=== PATIENT | male | born 1985 | race Caucasian/White ===

== ENCOUNTER 2016-09-11 20:59 | Emergency (ER) | payer SELFPAY ==
[2016-09-11 21:01] VITALS: BMI 31.3
[2016-09-11 22:53] LABS: BASOPHIL 1.1 % (0-2.0); MCH 25.4 pg (25.7-33.7); MCHC 32.8 g/dl (32.0-35.9); MEAN CELL VOLUME 77.3 fl (80-96); MEAN PLT VOLUME 8.1 fl (7.5-11.1); NEUTROPHILS 77.2 % (42.8-82.8); PLATELET COUNT 279 K/MM3 (134-434); RDW 14.1 % (11.9-15.9); WHITE BLOOD COUNT 8.5 K/mm3 (4.0-10.0)
--- NOTE | 2016-09-11 23:19 | PDOC ---
*Physical Exam - Vital Signs Last Vital Signs Temp Pulse Resp BP Pulse Ox 102 H 20 106/61 98 09/11/16 21:00 09/11/16 21:00 09/11/16 21:00 09/11/16 21:00 ED Treatment Course - LABORATORY CBC & Chemistry Diagram: 09/11/16 22:44 09/11/16 22:44 - ADDITIONAL ORDERS Additional order review: 09/11/16 22:44 RBC 5.43 MCV 77.3 L MCHC 32.8 RDW 14.1 MPV 8.1 Neutrophils % 77.2 Lymphocytes % 15.1 Monocytes % 4.6 Eosinophils % 2.0 Basophils % 1.1 Medical Decision Making - Medical Decision Making 09/11/16 23:18 Pt seen by the Advanced Practice Provider under my direct supervision Ancillary studies reviewed I agree with plan as outlined by the Advanced Practice Provider AUNDREA George *DC/Admit/Observation/Transfer Diagnosis at time of Disposition: Shortness of breath - Discharge Dispostion Disposition: HOME Condition at time of disposition: Stable - Referrals Referrals: Ismael Cohen MD [Staff Physician] - Papa Walter MD [Staff Physician] - - Patient Instructions Printed Discharge Instructions: DI for Atypical Chest Pain Additional Instructions: Please establish care with a primary care doctor and guest services attendant as discussed. If you experience any increased shortness of breath, chest pain, palpitations , lightheadedness, fever, chills, vomiting, diarrhea, or any new or worsening symptoms, please return to the ER.
[2016-09-11 23:24] LABS: ALBUMIN 3.6 g/dl (3.4-5.0); ALK PHOS 63 U/L (45-117); ANION GAP 6 (8-16); BILIRUBIN,TOTAL 0.4 mg/dL (0.2-1.0); CALCIUM 8.7 mg/dL (8.5-10.1); CO2 29 mmol/L (21-32); CREATININE 0.9 mg/dL (0.7-1.3); GLUCOSE,RANDOM 108 mg/dL (74-106); SGOT/AST 16 U/L (15-37); SGPT/ALT 25 U/L (12-78); TOT PROT 7.3 g/dl (6.4-8.2)
--- NOTE | 2016-09-11 23:24 | PDOC ---
History of Present Illness - General Chief Complaint: Shortness of Breath Stated Complaint: DIFFICULTY BREATHING Time Seen by Provider: 09/11/16 21:01 - History of Present Illness Initial Comments: 09/11/16 23:18 CHIEF COMPLAINT: SOB HISTORY OF PRESENT ILLNESS: 30 yo M with no PMH presents to ED with shortness of breath since this afternoon. Patient reports that he "was working on some stuff at home, got tired and took a nap, and when I woke up I felt weird, like it was hard to breathe and I was sweating abnormally. My legs felt abnormally light or something." He denies any chest pain. No recent travel or sick contacts. PAST MEDICAL HISTORY: Denies past medical history FAMILY HISTORY: "My dad had heart problems, not really sure what but I think he might have had a heart attack." SOCIAL HISTORY: Former smoker, quit in 2000. Denies alcohol, illicit drug use. SURGICAL HISTORY: Denies ALLERGIES: No known drug allergies REVIEW OF SYSTEMS General/Constitutional: Denies fever or chills. Denies weakness, weight change. HEENT: Denies change in vision. Denies ear pain or discharge. Denies sore throat. Cardiovascular: SOB this afternoon, now resolved. Denies chest pain. Respiratory: Denies cough, wheezing, or hemoptysis. Gastrointestinal: Denies nausea, vomiting, diarrhea or constipation. Denies rectal bleeding. Genitourinary: Denies dysuria, frequency, or change in urination. Musculoskeletal: Denies joint or muscle swelling or pain. Denies neck or back pain. Skin and breasts: Denies rash or easy bruising. Neurologic: Denies headache, vertigo, loss of consciousness, or loss of sensation. PHYSICAL EXAM General Appearance: Well-appearing, appropriately dressed. HEENT: EOMI, PERRLA. Neck: Supple. Trachea midline. No tenderness, rigidity, carotid bruit, stridor , lymphadenopathy, or thyromegaly. Respiratory/Chest: Lungs CTAB. Cardiovascular: RRR. S1, S2. Vascular Pulses: Dorsalis-Pedis (R): 2+, Dorsalis-Pedis (L): 2+ Gastrointestinal/Abdominal: Normal bowel sounds. Abdomen soft, non-distended. No tenderness or rebound tenderness. No organomegaly, pulsatile mass, guarding , hernia, hepatomegaly, splenomegaly. Musculoskeletal/Extremities: Normal inspection. FROM of all extremities, normal capillary refill. Pelvis Stable. No CVA tenderness. No tenderness to extremities, pedal edema, swelling, erythema or deformity. Integumentary: Appropriate color, dry, warm. No cyanosis, erythema, jaundice or rash Neurologic: loan servicing officer II-XII intact. Fully oriented, alert. Appropriate mood/affect. Motor strength 5/5. No appreciable EOM palsy, facial droop or sensory deficit. Past History - Past Medical History Home Medications: Ambulatory Orders NK [No Known Home Medication] 09/11/16 - Psycho/Social/Smoking Cessation Hx Suicidal Ideation: No Smoking History: Never smoked Have you smoked in the past 12 months: No Information on smoking cessation initiated: No Hx Alcohol Use: No Drug/Substance Use Hx: No *Physical Exam - Vital Signs Last Vital Signs Temp Pulse Resp BP Pulse Ox 102 H 20 106/61 98 09/11/16 21:00 09/11/16 21:00 09/11/16 21:00 09/11/16 21:00 ED Treatment Course - LABORATORY CBC & Chemistry Diagram: 09/11/16 22:44 09/11/16 22:44 - ADDITIONAL ORDERS Additional order review: 09/11/16 22:44 RBC 5.43 MCV 77.3 L MCHC 32.8 RDW 14.1 MPV 8.1 Neutrophils % 77.2 Lymphocytes % 15.1 Monocytes % 4.6 Eosinophils % 2.0 Basophils % 1.1 - RADIOLOGY Radiology Studies Ordered: Category Date Time Status CHEST PA & LAT [RAD] Stat Radiology 09/11/16 22:07 Ordered Medical Decision Making - Medical Decision Making 09/11/16 23:23 30 yo M with no PMH presents to ED with shortness of breath since this afternoon. -CBC, CMP, card profile, D-dimer -EKG, CXR Labs unremarkable. CXR negative Advised patient to follow up with PCP and cards within the next week. Advised patient of signs and symptoms for return to ED. Patient verbalized understanding and agrees to plan. *DC/Admit/Observation/Transfer Diagnosis at time of Disposition: Shortness of breath - Discharge Dispostion Disposition: HOME Condition at time of disposition: Stable Admit: No - Referrals Referrals: Ismael Cohen MD [Staff Physician] - Papa Walter MD [Staff Physician] - - Patient Instructions Printed Discharge Instructions: DI for Atypical Chest Pain Additional Instructions: Please establish care with a primary care doctor and college basketball coach as discussed. If you experience any increased shortness of breath, chest pain, palpitations , lightheadedness, fever, chills, vomiting, diarrhea, or any new or worsening symptoms, please return to the ER.
[2016-09-12 00:04] LABS: TROPONIN I 0.03 ng/ml (0.00-0.05)
[2016-09-12 01:06] VITALS: BP 110/68; PULSE 96
--- NOTE | 2016-09-12 12:25 | EKG ---
Test Reason : Blood Pressure : / mmHG Vent. Rate : 086 BPM Atrial Rate : 086 BPM P-R Int : 142 ms QRS Dur : 094 ms QT Int : 350 ms P-R-T Axes : 019 -24 -01 degrees QTc Int : 418 ms NORMAL SINUS RHYTHM MINIMAL VOLTAGE CRITERIA FOR LVH, MAY BE NORMAL VARIANT BORDERLINE ECG NO PREVIOUS ECGS AVAILABLE Confirmed by FREDIS RAMOS MD ([id number]) on 09/12/2016 12:25:02 PM Referred By: Confirmed By:FREDIS RAMOS MD
== END 2016-09-12 01:06 | disposition home or self-care (01) ==
LOC: JER 20:59
DX: R06.02 Shortness of breath (principal)
CPT/HCPCS: 36415; 71020-TC; 80053; 82550; 84484; 85025; 85379; 93005; 93010; 99282-25

== ENCOUNTER 2019-03-18 20:52 | Emergency (ER) | payer OTHER ==
[2019-03-18 21:11] VITALS: TEMP 97.9; BMI 44.1
--- NOTE | 2019-03-18 21:11 | PDOC ---
History of Present Illness - General Chief Complaint: Chest Pain Stated Complaint: CHEST PAIN Time Seen by Provider: 03/18/19 21:10 Past History - Past Medical History Allergies/Adverse Reactions: Allergies Allergy/AdvReac Type Severity Reaction Status Date / Time No Known Allergies Allergy Verified 03/18/19 21:09 Home Medications: Ambulatory Orders NK [No Known Home Medication] 09/11/16 COPD: No - Psycho Social/Smoking Cessation Hx Smoking History: Never smoked Have you smoked in the past 12 months: No Information on smoking cessation initiated: No Hx Alcohol Use: No Drug/Substance Use Hx: No *Physical Exam - Vital Signs Last Vital Signs Temp Pulse Resp BP Pulse Ox 97.9 F 160 H 18 147/96 100 03/18/19 21:07 03/18/19 21:07 03/18/19 21:07 03/18/19 21:07 03/18/19 21:07 ED Treatment Course - LABORATORY CBC & Chemistry Diagram: 03/18/19 21:45 03/18/19 21:45 Medical Decision Making - Medical Decision Making 03/18/19 21:52 HPI: 33yo M hx obesity presents from home with constant chest discomfort and mild palpitations since 0930 this AM, with similar sx approx 1x/mo xfew years, but usually resolve on own or with BMs within a few minutes. Discomfort worst at onset when woke up at 0930 this AM then quickly petered off but then remained constant as a "warmth"/discomfort similar to gas, L-sided, nonradiating, constant, 3/10, with associated slight feeling of palpitations. Hx similar sx approx 1x/4mo for past few years, but usually resolves in 1-few minutes on own or when goes to bathroom, never lasted this long before. Last time it happened he came here and it was worse with associated SOB and syncope and he was told it was dehydration. Hx smoking cigarettes <1 pack-year, quit 15 years ago. Denies webbing inspector, hx arrhythmia, echo, stress test. Father with CO and pacemaker at unknown age; mother with unknown abnormal rhythm. Denies LEMOS, orthopnea, syncope, trauma, recent illness, sick contacts, recent travel, hx CAD , FHx CAD or arrhythmia or SCD, leg swelling, calf tenderness, testosterone or hormone use, hx DVT or PE, hemoptysis, fever, chills, fatigue, headache, dizziness, numbness/tingling, weakness, vision changes, shortness of breath, cough, leg swelling, abdominal pain, blood in stool, diarrhea, constipation, nausea, vomiting, dysuria, hematuria, confusion. PCP - recent change from [facility] ([facility]), unknown name of doctor ROS: Constitutional: Negative for chills, fever, fatigue, diaphoresis. HENT: Negative for sore throat, rhinorrhea, congestion. Eyes: Negative for visual disturbance. Respiratory: Negative for shortness of breath, cough, and wheezing. Cardiovascular: Positive for chest pain and palpitations. Negative for leg swelling. Gastrointestinal: Negative for abdominal pain, blood in stool, constipation, diarrhea, nausea, and vomiting. Genitourinary: Negative for dysuria, flank pain, and hematuria. Musculoskeletal: Negative for myalgias, back pain, and neck pain. Skin: Negative for rash. Neurological: Negative for light-headedness, dizziness, vertigo, syncope, weakness, numbness and headaches. Psychiatric/Behavioral: Negative for behavioral problems and confusion. PE: Gen: Alert, NAD, comfortable-appearing, obese HEENT: PERRL, EOMI, MMM, NCAT. No conjunctival pallor. Sclera are non-icteric. CV: Tachycardic rate and regular rhythm. No murmurs, rubs, or gallops. PULM: No resp distress. CTAB, no wheezes, rales, or rhonchi. ABD: protuberant, soft, NT/ND, no rebound tenderness or guarding, no CVA tenderness. BACK: No TTP of c/t/l-spine. No step-offs or deformities. MSK: No bony deformities. 2+ pulses in all extremities. NEURO: AAOx3. PERRL. CN 2-12 intact. 5/5 strength in all extremities. Sensation to light touch intact in all extremities EXTREMITIES: No cyanosis. No clubbing. No edema. No calf tenderness. PSYCH: Normal mood and thought pattern. SKIN: Warm and dry. Normal capillary refill. No rashes. No jaundice. MDM: 33yo M hx obesity presents from home with constant chest discomfort and mild palpitations since 0930 this AM, with similar sx approx 1x/mo xfew years, but usually resolve on own or with BMs within a few minutes. Tachycardic to 160, other VSS, afebrile, tachycardic but otherwise benign physical exam. EKG reviewed: SVT, 153bpm, QTc 488ms, QRS duration 92ms, normal axis, nonspecific ST abnormality, no ST elevation or depression, no e/o acute ischemia CP and palpitations most likely due to SVT. Resolve SVT and reassess. Ddx: arrhythmia, ACS/CO, metabolic derangement, anemia. Low concern for pulmonary pathology (PNA, COPD exacerbation, PTX) due to lack of SOB, cough, or wheezing - no further testing indicated at this time; consider CXR if pain persists with resolution of SVT. Low concern for PE due to lack of SOB, s/s of DVT, or RFs/inciting events other than obesity - no further testing at this time ; consider further testing if pain persists with resolution of SVT. -Vagal maneuvers -If vagal maneuvers don't resolve SVT, adenosine -CBC,CMP,Cardiac profile,Mg,Phos,Coags -Dispo: pending w/u and SVT resolution Vagal maneuvers done. Pt placed in semirecumbent position and exhaled forcefully through large syringe. Multiple attempts without change. One attempt of modified Valsalva with standard strain followed by supine repositioning and 15 seconds of passive leg raise successful - SVT resolved, NSR in 80s-90s, pt's CP resolved. Pt feels much better. Education provided written (from [employer]) and verbally on SVT and Vagal maneuvers. Observe to make sure pt remains in normal rhythm. Pending labs and observation, likely d/c home 03/19/19 22:48 2nd EKG reviewed: NSR, 90bpm, QRS duration 106ms, QTc 433ms, normal axis, TWIs in III, no ST elevations or depressions Labs reviewed. Of note, trop @2145 0.06. Trend 3hr trop @0045 - if negative, d/ c home with cardio f/u. 03/19/19 00:08 Pt still comfortable, normal rhythm on monitor. Signed out to Dr Addie Chandler, pending trop, likely d/c home. Discharge - Discharge Information Problems reviewed: Yes Clinical Impression/Diagnosis: SVT (supraventricular tachycardia) Condition: Improved Disposition: HOME - Admission No - Follow up/Referral Referrals: Andrea Long MD [Staff Physician] - - Patient Discharge Instructions Patient Printed Discharge Instructions: Paroxysmal Supraventricular Tachycardia Additional Instructions: You have been seen in the Emergency Department for your chest pain. Your EKG showed your heart beating in an abnormally fast rhythm known as SVT ( Supraventricular Tachycardia). The SVT resolved with Vagal maneuvers and your chest pain improved. You need further evaluation and monitoring of your condition by a [facility]. We have given you a referral to [facility] Dr. Long - call his office (or the office of a webbing inspector you or your insurance prefers) in the morning to set up a follow-up appointment for within 1 week. If you experience these symptoms again, you can try the vagal maneuvers at home. If your symptoms don't improve with these maneuvers, you may need medication. Return to the Emergency Department immediately if you experience the same symptoms that don't resolve with vagal maneuvers, chest pain, difficulty breathing, dizziness or passing out, or any new or worsening symptoms. - Post Discharge Activity
[2019-03-18] MEDS ORDERED: SODIUM CHLORIDE 1,000 ML IV STA (21:44)
[2019-03-18] MEDS ORDERED: ADENOSINE 6 MG/2 ML VIAL IVPUSH ONE ×2 (21:44→21:45)
--- NOTE | 2019-03-18 22:00 | PDOC ---
Attending Attestation - Resident Resident Name: OrlandotonyaMarcie - ED Attending Attestation I have performed the following: I have examined & evaluated the patient, The case was reviewed & discussed with the resident, I agree w/resident's findings & plan, Exceptions are as noted - HPI HPI: 03/18/19 22:01 See resident HPI - Physicial Exam PE: 03/18/19 22:01 Agree with exam as documented by resident - Medical Decision Making 03/18/19 22:02 33M no pmh with cp, palpitations, says he has been evaluated by OSH for same. Symptoms have occurred before and usually resolve spontaneously EKG with SVT F/u labs Vagal maneuver re-eval Vagal maneuver broke arrythmia Repeat EKG, NSR Initial trop 0.06, will repeat Trop stable, dc with PCP and cardiology f/u
[2019-03-18 22:06] LABS: BASO % 0.9 % (0-2.0); EOS % 4.6 % (0-4.5); HEMATOCRIT 41.3 % (35.4-49); HEMOGLOBIN 13.6 GM/dL (11.7-16.9); LYMPH % 30.3 % (8-40); MCH 25.6 pg (25.7-33.7); MEAN CELL VOLUME 77.5 fl (80-96); MEAN PLT VOLUME 8.2 fl (7.5-11.1); NEUT % 57.2 % (42.8-82.8); PLATELET COUNT 299 K/MM3 (134-434); RBC 5.33 M/mm3 (4.00-5.60); RDW 14.7 % (11.9-15.9); WHITE BLOOD COUNT 9.4 K/mm3 (4.0-10.0)
[2019-03-18 22:27] LABS: INR 0.95 (0.83-1.09); PROTHROMBIN TIME (PATIENT) 11.2 SEC (9.7-13.0)
[2019-03-18 22:34] LABS: MAGNESIUM 2.2 mg/dL (1.8-2.4); PHOSPHOROUS 4.6 mg/dL (2.5-4.9)
[2019-03-18 22:40] LABS: ALBUMIN 3.4 g/dl (3.4-5.0); BILIRUBIN,TOTAL 0.2 mg/dL (0.2-1); BLOOD UREA NITROGEN 11.8 mg/dL (7-18); CALCIUM 9.4 mg/dL (8.5-10.1); CREATININE 0.8 mg/dL (0.55-1.3); TOT PROT 7.3 g/dl (6.4-8.2)
[2019-03-19 02:47] VITALS: BP 141/86; PULSE 95
--- NOTE | 2019-03-19 14:00 | EKG ---
Test Reason : Blood Pressure : / mmHG Vent. Rate : 090 BPM Atrial Rate : 090 BPM P-R Int : 154 ms QRS Dur : 106 ms QT Int : 354 ms P-R-T Axes : 032 -19 014 degrees QTc Int : 433 ms NORMAL SINUS RHYTHM NORMAL ECG WHEN COMPARED WITH ECG OF 11-SEP-2016 22:39, NONSPECIFIC T WAVE ABNORMALITY HAS REPLACED INVERTED T WAVES IN INFERIOR LEADS NONSPECIFIC T WAVE ABNORMALITY NOW EVIDENT IN LATERAL LEADS Confirmed by NIHARIKA ALEMAN MD ([id number]) on 03/19/2019 1:59:43 PM Referred By: Confirmed By:NIHARIKA ALEMAN MD
--- NOTE | 2019-03-19 14:03 | EKG ---
Test Reason : Blood Pressure : / mmHG Vent. Rate : 153 BPM Atrial Rate : 090 BPM P-R Int : 000 ms QRS Dur : 092 ms QT Int : 306 ms P-R-T Axes : 000 -28 004 degrees QTc Int : 488 ms SUPRAVENTRICULAR TACHYCARDIA NONSPECIFIC ST ABNORMALITY CANNOT RULE OUT INFERIOR INFARCT ABNORMAL ECG WHEN COMPARED WITH ECG OF 11-SEP-2016 22:39, VENT. RATE HAS INCREASED BY 67 BPM Confirmed by NIHARIKA ALEMAN MD ([id number]) on 03/19/2019 2:02:51 PM Referred By: Confirmed By:NIHARIKA ALEMAN MD
== END 2019-03-19 02:40 | disposition home or self-care (01) ==
LOC: JER 20:52
DX: I47.1 Supraventricular tachycardia (principal); E66.9 Obesity, unspecified; Z68.41 Body mass index [BMI] 40.0-44.9, adult
CPT/HCPCS: 36415; 80053; 82550; 83735; 84100; 84484; 85025; 85610; 93005; 93010; 99283-25

== ENCOUNTER 2020-08-23 12:38 | Emergency (ER) | payer OTHER ==
[2020-08-23 13:01] VITALS: TEMP 98.9; BMI 45.4
[2020-08-23] MEDS ORDERED: SODIUM CHLORIDE 0.9% 500 ML INFUS.BAG IV ONE ×2 (13:15→13:17)
[2020-08-23 13:56] LABS: BASO % 0.8 % (0-2.0); EOS % 2.6 % (0-4.5); HEMATOCRIT 40.6 % (35.4-49); HEMOGLOBIN 13.8 GM/dL (11.7-16.9); LYMPH % 25.3 % (8-40); MCH 25.6 pg (25.7-33.7); MCHC 33.9 g/dl (32.0-35.9); MEAN CELL VOLUME 75.6 fl (80-96); MEAN PLT VOLUME 8.2 fl (7.5-11.1); MONO % 8.6 % (3.8-10.2); NEUT % 62.7 % (42.8-82.8); PLATELET COUNT 252 K/MM3 (134-434); RBC 5.37 M/mm3 (4.00-5.60); RDW 15.6 % (11.9-15.9); WHITE BLOOD COUNT 5.8 K/mm3 (4.0-10.0)
[2020-08-23 14:02] LABS: INR 1.1 (0.83-1.09); PROTHROMBIN TIME (PATIENT) 13.3 SEC (9.7-13.0)
[2020-08-23 14:05] LABS: ACTIVATED PTT 33.7 SECONDS (25.2-36.5)
[2020-08-23 14:21] LABS: CHLORIDE 102 mmol/L (98-107); SODIUM 138 mmol/L (136-145)
[2020-08-23 14:23] LABS: ALBUMIN 3.6 g/dl (3.4-5.0); ANION GAP 9 MMOL/L (8-16); BLOOD UREA NITROGEN 12.5 mg/dL (7-18); CALCIUM 8.9 mg/dL (8.5-10.1); CO2 27 mmol/L (21-32); GLUCOSE,RANDOM 140 mg/dL (74-106)
[2020-08-23] MEDS ORDERED: ADENOSINE 6 MG/2 ML VIAL IVPUSH ONE ×4 (14:25→16:03)
[2020-08-23 14:26] LABS: SGOT/AST 31 U/L (15-37); SGPT/ALT 35 U/L (13-61)
[2020-08-23 14:27] LABS: CREATININE 0.8 mg/dL (0.55-1.3)
[2020-08-23 14:28] LABS: BILIRUBIN,TOTAL 0.5 mg/dL (0.2-1); TOT PROT 7.7 g/dl (6.4-8.2)
[2020-08-23 14:29] LABS: ALK PHOS 60 U/L (45-117)
[2020-08-23 16:05] VITALS: BP 132/69
[2020-08-25 08:52] VITALS: PULSE 95
== END 2020-08-23 16:17 | disposition home or self-care (01) ==
LOC: JER 12:38
PROC: 3E033GC Introduction of Other Therapeutic Substance into Peripheral Vein, Percutaneous Approach (ICD-10-PCS; principal; 2020-08-23)
DX: I47.1 Supraventricular tachycardia (principal); R00.2 Palpitations
CPT/HCPCS: 36415; 71045-TC-FY; 80053; 84443; 84484; 85025; 85610; 85730; 93005; 93010; 96374; 99285-25

== ENCOUNTER 2020-09-05 20:29 | Emergency (ER) | payer OTHER ==
[2020-09-05 20:48] VITALS: BMI 43.4
[2020-09-05] MEDS ORDERED: ADENOSINE 6 MG/2 ML VIAL IVPUSH ONE ×3 (21:05→21:58)
[2020-09-05 22:30] LABS: BASO % 0.7 % (0-2.0); HEMATOCRIT 42.1 % (35.4-49); LYMPH % 33.5 % (8-40); MCH 25.2 pg (25.7-33.7); MCHC 33.1 g/dl (32.0-35.9); MEAN CELL VOLUME 76.1 fl (80-96); MEAN PLT VOLUME 8.4 fl (7.5-11.1); NEUT % 52.8 % (42.8-82.8); PLATELET COUNT 276 10^3/uL (134-434); RBC 5.53 M/mm3 (4.00-5.60); RDW 15.5 % (11.9-15.9); WHITE BLOOD COUNT 8.1 K/mm3 (4.0-10.0)
[2020-09-05 22:38] LABS: INR 1.01 (0.83-1.09); PROTHROMBIN TIME (PATIENT) 12.4 SEC (9.7-13.0)
[2020-09-05 22:41] LABS: ACTIVATED PTT 34.8 SECONDS (25.2-36.5)
[2020-09-05 22:57] LABS: CHLORIDE 104 mmol/L (98-107); SODIUM 141 mmol/L (136-145)
[2020-09-05 22:59] LABS: CALCIUM 9.2 mg/dL (8.5-10.1)
[2020-09-05 23:00] LABS: ALBUMIN 3.7 g/dl (3.4-5.0); ANION GAP 8 MMOL/L (8-16); BLOOD UREA NITROGEN 11.1 mg/dL (7-18); CO2 29 mmol/L (21-32); GLUCOSE,RANDOM 109 mg/dL (74-106)
[2020-09-05 23:01] LABS: MAGNESIUM 2.1 mg/dL (1.8-2.4)
[2020-09-05 23:03] LABS: CREATININE 0.8 mg/dL (0.55-1.3); SGOT/AST 25 U/L (15-37); SGPT/ALT 45 U/L (13-61)
[2020-09-05 23:04] LABS: BILIRUBIN,TOTAL 0.3 mg/dL (0.2-1)
[2020-09-05 23:05] LABS: TOT PROT 7.8 g/dl (6.4-8.2)
[2020-09-05 23:06] LABS: ALK PHOS 62 U/L (45-117)
[2020-09-06 04:44] VITALS: BP 143/92; PULSE 98; TEMP 98.3
== END 2020-09-06 04:45 | disposition left against medical advice (07) ==
LOC: JER 20:29
PROC: 3E033GC Introduction of Other Therapeutic Substance into Peripheral Vein, Percutaneous Approach (ICD-10-PCS; principal; 2020-09-05)
PROC: 3E033GC Introduction of Other Therapeutic Substance into Peripheral Vein, Percutaneous Approach (ICD-10-PCS; 2020-09-05)
DX: I47.1 Supraventricular tachycardia (principal)
CPT/HCPCS: 36415; 71046-TC-FY; 80053; 82550; 83735; 84443; 84484; 85025; 85610; 85730; 93005; 93010; 99285-25

== ENCOUNTER 2020-09-16 15:22 | Emergency (ER) | payer OTHER ==
[2020-09-16 15:44] VITALS: BMI 43.4
[2020-09-16 16:14] LABS: BASO % 1.1 % (0-2.0); EOS % 5.7 % (0-4.5); HEMATOCRIT 38.3 % (35.4-49); HEMOGLOBIN 12.7 GM/dL (11.7-16.9); LYMPH % 25.6 % (8-40); MCH 25.3 pg (25.7-33.7); MCHC 33.2 g/dl (32.0-35.9); MEAN CELL VOLUME 76.1 fl (80-96); MEAN PLT VOLUME 7.7 fl (7.5-11.1); MONO % 6.7 % (3.8-10.2); NEUT % 60.9 % (42.8-82.8); PLATELET COUNT 248 10^3/uL (134-434); RBC 5.03 M/mm3 (4.00-5.60); RDW 15.1 % (11.9-15.9); WHITE BLOOD COUNT 5.7 K/mm3 (4.0-10.0)
[2020-09-16 16:32] LABS: CHLORIDE 106 mmol/L (98-107); SODIUM 139 mmol/L (136-145)
[2020-09-16 16:33] LABS: CALCIUM 8.3 mg/dL (8.5-10.1)
[2020-09-16 16:34] LABS: ANION GAP 8 MMOL/L (8-16); BLOOD UREA NITROGEN 11.8 mg/dL (7-18); CO2 24 mmol/L (21-32)
[2020-09-16 16:37] LABS: CREATININE 0.7 mg/dL (0.55-1.3)
[2020-09-16 16:44] LABS: GLUCOSE,RANDOM 97 mg/dL (74-106)
[2020-09-16 17:00] VITALS: TEMP 98.2
[2020-09-16 17:32] VITALS: BP 131/89; PULSE 81
== END 2020-09-16 17:33 | disposition home or self-care (01) ==
LOC: JER 15:22
DX: I47.1 Supraventricular tachycardia (principal)
CPT/HCPCS: 36415; 80048; 84484; 85025; 93005; 93010; 99284-25

== ENCOUNTER 2020-09-27 01:20 | Emergency (ER) | payer OTHER ==
[2020-09-27 01:29] VITALS: TEMP 98.4; BMI 43.4
[2020-09-27] MEDS ORDERED: ADENOSINE 6 MG/2 ML VIAL IVPUSH ONE ×2 (01:37→01:39)
[2020-09-27] MEDS ORDERED: SODIUM CHLORIDE 0.9% 500 ML INFUS.BAG IV ONE (01:38)
[2020-09-27 02:05] VITALS: BP 120/78; PULSE 86
[2020-09-27 02:21] LABS: BASO % 1.3 % (0-2.0); EOS % 6.1 % (0-4.5); HEMOGLOBIN 12.8 GM/dL (11.7-16.9); LYMPH % 30.4 % (8-40); MCH 25.1 pg (25.7-33.7); MCHC 32.8 g/dl (32.0-35.9); MEAN CELL VOLUME 76.3 fl (80-96); MEAN PLT VOLUME 7.8 fl (7.5-11.1); MONO % 5.9 % (3.8-10.2); NEUT % 56.3 % (42.8-82.8); PLATELET COUNT 257 10^3/uL (134-434); RBC 5.11 M/mm3 (4.00-5.60); WHITE BLOOD COUNT 5.8 K/mm3 (4.0-10.0)
[2020-09-27 02:30] LABS: INR 1.03 (0.83-1.09); PROTHROMBIN TIME (PATIENT) 12.5 SEC (9.7-13.0)
[2020-09-27 02:40] LABS: CHLORIDE 109 mmol/L (98-107); SODIUM 141 mmol/L (136-145)
[2020-09-27 02:42] LABS: ALBUMIN 3.2 g/dl (3.4-5.0); ANION GAP 7 MMOL/L (8-16); BLOOD UREA NITROGEN 11.3 mg/dL (7-18); CALCIUM 8.1 mg/dL (8.5-10.1); CO2 25 mmol/L (21-32); GLUCOSE,RANDOM 101 mg/dL (74-106)
[2020-09-27 02:45] LABS: CREATININE 0.6 mg/dL (0.55-1.3); SGOT/AST 17 U/L (15-37); SGPT/ALT 33 U/L (13-61)
[2020-09-27 02:47] LABS: BILIRUBIN,TOTAL 0.4 mg/dL (0.2-1); TOT PROT 6.7 g/dl (6.4-8.2)
[2020-09-27 02:48] LABS: ALK PHOS 54 U/L (45-117)
== END 2020-09-27 03:32 | disposition home or self-care (01) ==
LOC: JER 01:20
PROC: 3E033GC Introduction of Other Therapeutic Substance into Peripheral Vein, Percutaneous Approach (ICD-10-PCS; principal; 2020-09-27)
DX: I47.1 Supraventricular tachycardia (principal)
CPT/HCPCS: 36415; 80053; 82550; 84484; 85025; 85610; 93005; 93010; 96374; 99284-25

== ENCOUNTER 2020-12-10 19:07 | Emergency (ER) | payer OTHER ==
[2020-12-10 19:16] VITALS: TEMP 98.2; BMI 33.9
[2020-12-10 19:45] LABS: BASO % 1.1 % (0-2.0); HEMATOCRIT 37.8 % (35.4-49); HEMOGLOBIN 12.9 GM/dL (11.7-16.9); LYMPH % 23.6 % (8-40); MCH 25.8 pg (25.7-33.7); MCHC 34.1 g/dl (32.0-35.9); MEAN CELL VOLUME 75.8 fl (80-96); MEAN PLT VOLUME 7.6 fl (7.5-11.1); MONO % 4.7 % (3.8-10.2); NEUT % 65.6 % (42.8-82.8); PLATELET COUNT 257 10^3/uL (134-434); RBC 4.98 M/mm3 (4.00-5.60); RDW 14.8 % (11.9-15.9); WHITE BLOOD COUNT 6.5 K/mm3 (4.0-10.0)
[2020-12-10 20:08] LABS: CHLORIDE 106 mmol/L (98-107); SODIUM 140 mmol/L (136-145)
[2020-12-10 20:10] LABS: ALBUMIN 3.2 g/dl (3.4-5.0); ANION GAP 8 MMOL/L (8-16); BLOOD UREA NITROGEN 9.7 mg/dL (7-18); CALCIUM 8.2 mg/dL (8.5-10.1); CO2 26 mmol/L (21-32); GLUCOSE,RANDOM 122 mg/dL (74-106)
[2020-12-10 20:13] LABS: CREATININE 0.9 mg/dL (0.55-1.3); SGOT/AST 16 U/L (15-37); SGPT/ALT 23 U/L (13-61)
[2020-12-10 20:15] LABS: BILIRUBIN,TOTAL 0.3 mg/dL (0.2-1); TOT PROT 7.2 g/dl (6.4-8.2)
[2020-12-10 20:16] LABS: ALK PHOS 59 U/L (45-117)
[2020-12-10 20:34] VITALS: BP 140/84; PULSE 92
== END 2020-12-10 20:34 | disposition home or self-care (01) ==
LOC: JER 19:07
DX: I47.1 Supraventricular tachycardia (principal)
CPT/HCPCS: 36415; 71046-TC-FY; 80053; 82550; 84484; 85025; 93005; 93010; 99285-25

== ENCOUNTER 2021-10-22 14:05 | Emergency (ER) | payer OTHER ==
[2021-10-22] MEDS ORDERED: ONDANSETRON 4 MG/2 ML VIAL IVPUSH ONE (14:21)
[2021-10-22] MEDS ORDERED: FAMOTIDINE 20 MG/50 ML IVPB 20 MG/50 ML MG IVPB ONE ×2 (14:21→15:01)
[2021-10-22] MEDS ORDERED: SODIUM CHLORIDE 0.9% 500 ML INFUS.BAG IV ONE (14:21)
[2021-10-22 14:25] VITALS: RESP 20; TEMP 98.1; BMI 43.4
[2021-10-22] MEDS ORDERED: ONDANSETRON 4 MG/2 ML VIAL ONE (15:01)
[2021-10-22] MEDS ORDERED: MAG HYDROX/AL HYDROX/SIMETH 30 ML UNIT-DOSE CUP PO ONE (15:19)
[2021-10-22 15:22] LABS: BASO % 1.1 % (0-2.0); EOS % 6.2 % (0-4.5); HEMATOCRIT 40.5 % (35.4-49); HEMOGLOBIN 13.5 GM/dL (11.7-16.9); LYMPH % 29.6 % (8-40); MCH 24.6 pg (25.7-33.7); MCHC 33.4 g/dl (32.0-35.9); MEAN CELL VOLUME 73.6 fl (80-96); MEAN PLT VOLUME 8.4 fl (7.5-11.1); MONO % 5.9 % (3.8-10.2); NEUT % 57.2 % (42.8-82.8); PLATELET COUNT 284 10^3/uL (134-434); RDW 15.7 % (11.9-15.9); WHITE BLOOD COUNT 7.6 K/mm3 (4.0-10.0)
[2021-10-22] MEDS ORDERED: MAG HYDROX/AL HYDROX/SIMETH 30 ML UNIT-DOSE CUP ONE (15:37)
[2021-10-22 15:49] LABS: ALBUMIN 3.9 g/dl (3.4-5.0)
[2021-10-22 15:50] LABS: BLOOD UREA NITROGEN 15.4 mg/dL (7-18); MAGNESIUM 2.2 mg/dL (1.8-2.4)
[2021-10-22 15:53] LABS: CREATININE 0.9 mg/dL (0.55-1.3)
[2021-10-22 15:55] LABS: BILIRUBIN,TOTAL 0.4 mg/dL (0.2-1)
[2021-10-22 16:39] VITALS: BP 138/88; PULSE 77
== END 2021-10-22 16:43 | disposition home or self-care (01) ==
LOC: JER 14:05
PROC: 3E033GC Introduction of Other Therapeutic Substance into Peripheral Vein, Percutaneous Approach (ICD-10-PCS; principal; 2021-10-22)
DX: R11.2 Nausea with vomiting, unspecified (principal)
CPT/HCPCS: 36415; 80053; 83690; 83735; 85025; 93005; 93010; 96365; 96375; 99284-25

== ENCOUNTER 2022-11-01 12:09 | Inpatient (IN) | payer OTHER ==
[2022-11-01 13:17] LABS: BASO % 0.9 % (0-2.0); EOS % 3.3 % (0-4.5); HEMATOCRIT 34.7 % (35.4-49); LYMPH % 21.9 % (8-40); MCH 23.1 pg (25.7-33.7); MCHC 31.7 g/dl (32.0-35.9); MEAN CELL VOLUME 73.1 fl (80-96); MEAN PLT VOLUME 9.1 fl (7.5-11.1); MONO % 4.3 % (3.8-10.2); NEUT % 69.6 % (42.8-82.8); PLATELET COUNT 277 10^3/uL (134-434); RBC 4.75 M/mm3 (4.00-5.60); RDW 16.5 % (11.9-15.9); WHITE BLOOD COUNT 6.4 K/mm3 (4.0-10.0)
[2022-11-01 13:38] LABS: POTASSIUM 4.1 mmol/L (3.5-5.1)
[2022-11-01 13:41] LABS: CALCIUM 8.3 mg/dL (8.5-10.1)
[2022-11-01 13:42] LABS: ALBUMIN 3.3 g/dl (3.4-5.0); BLOOD UREA NITROGEN 16.9 mg/dL (7-18)
[2022-11-01 13:45] LABS: CREATININE 0.9 mg/dL (0.55-1.3)
[2022-11-01 13:46] LABS: BILIRUBIN,TOTAL 0.7 mg/dL (0.2-1); TOT PROT 6.7 g/dl (6.4-8.2)
[2022-11-01 13:52] LABS: N-TERMINAL BNP 1556.9 pg/ml (5-125)
[2022-11-01 13:57] LABS: VENOUS BASE EXCESS -3.2 mmol/L (-2-2); VENOUS O2 SATURATION 53.4 % (70-80); VENOUS PCO2 37.9 mmHg (38-52); VENOUS PH 7.373 (7.310-7.410)
[2022-11-01] MEDS ORDERED: FUROSEMIDE 40 MG/4 ML INJECTABLE VIAL IVPUSH ONE (15:49)
[2022-11-01] MEDS ORDERED: FUROSEMIDE 40 MG/4 ML INJECTABLE VIAL ONE (15:55)
[2022-11-01] MEDS: ASPIRIN 81 MG CHEWABLE TABLETS PO SCH (18:10)
[2022-11-01] MEDS: CARVEDILOL 12.5 MG TABLET (FP) PO SCH ×2 (18:10→22:50)
[2022-11-01 18:48] VITALS: BMI 43.8
[2022-11-01] MEDS: ATORVASTATIN CA 20 MG TABLET (FP) PO SCH (22:51)
[2022-11-01] MEDS: SACUBITRIL/VALSARTAN 24 MG-26 MG TABLET PO SCH (22:51)
[2022-11-02 08:12] LABS: BASO % 1.1 % (0-2.0); EOS % 4.6 % (0-4.5); HEMATOCRIT 34.1 % (35.4-49); HEMOGLOBIN 11.1 GM/dL (11.7-16.9); LYMPH % 25.7 % (8-40); MCH 23.6 pg (25.7-33.7); MCHC 32.5 g/dl (32.0-35.9); MEAN CELL VOLUME 72.6 fl (80-96); MEAN PLT VOLUME 9.2 fl (7.5-11.1); MONO % 5.5 % (3.8-10.2); NEUT % 63.1 % (42.8-82.8); PLATELET COUNT 267 10^3/uL (134-434); RDW 16.2 % (11.9-15.9); WHITE BLOOD COUNT 6.4 K/mm3 (4.0-10.0)
[2022-11-02 08:34] LABS: POTASSIUM 4.1 mmol/L (3.5-5.1)
[2022-11-02 08:41] LABS: BLOOD UREA NITROGEN 13.1 mg/dL (7-18)
[2022-11-02 08:42] LABS: ALBUMIN 3.1 g/dl (3.4-5.0); CALCIUM 8.3 mg/dL (8.5-10.1)
[2022-11-02 08:43] LABS: CHOLESTEROL 131 mg/dL (50-200); MAGNESIUM 1.9 mg/dL (1.8-2.4); TOT PROT 6.4 g/dl (6.4-8.2)
[2022-11-02 08:45] LABS: CREATININE 0.7 mg/dL (0.55-1.3); LDL CHOLESTEROL (ONLY SJRH) 88 mg/dL (5-100); PHOSPHOROUS 4.1 mg/dL (2.5-4.9)
[2022-11-02 08:46] LABS: HDL CHOLESTEROL 34 mg/dL (40-60)
[2022-11-02] MEDS: CARVEDILOL 12.5 MG TABLET (FP) PO SCH ×2 (09:16→21:30)
[2022-11-02] MEDS: ASPIRIN 81 MG CHEWABLE TABLETS PO SCH (09:16)
[2022-11-02] MEDS: SACUBITRIL/VALSARTAN 24 MG-26 MG TABLET PO SCH ×2 (09:16→21:30)
[2022-11-02] MEDS: ENOXAPARIN NA (PORCINE) 40 MG/0.4 ML DISP.SYRIN SQ SCH ×2 (09:16→22:00)
[2022-11-02] MEDS ORDERED: ENOXAPARIN NA (PORCINE) 40 MG/0.4 ML DISP.SYRIN SQ SCH (10:00)
[2022-11-02] MEDS: FUROSEMIDE 40 MG/4 ML INJECTABLE VIAL IVPUSH SCH (15:11)
[2022-11-02] MEDS: ATORVASTATIN CA 20 MG TABLET (FP) PO SCH (21:30)
[2022-11-03] MEDS: FUROSEMIDE 40 MG/4 ML INJECTABLE VIAL IVPUSH SCH ×2 (06:14→14:33)
[2022-11-03 08:38] LABS: PHOSPHOROUS 3.8 mg/dL (2.5-4.9)
[2022-11-03] MEDS ORDERED: ASPIRIN COATED 81 MG TABLET.EC PO SCH (10:00)
[2022-11-03] MEDS: SACUBITRIL/VALSARTAN 24 MG-26 MG TABLET PO SCH ×2 (10:07→22:07)
[2022-11-03] MEDS: ENOXAPARIN NA (PORCINE) 40 MG/0.4 ML DISP.SYRIN SQ SCH ×2 (10:07→22:07)
[2022-11-03] MEDS: CARVEDILOL 12.5 MG TABLET (FP) PO SCH ×2 (10:07→22:07)
[2022-11-03 11:39] LABS: HEPATITIS B SURFACE AG MATERN NON-REACTIVE (NONREACTIVE)
[2022-11-03] MEDS: ATORVASTATIN CA 20 MG TABLET (FP) PO SCH (22:07)
[2022-11-04 08:51] LABS: BASO % 1.2 % (0-2.0); EOS % 5.3 % (0-4.5); LYMPH % 27.4 % (8-40); MCH 23.2 pg (25.7-33.7); MCHC 31.5 g/dl (32.0-35.9); MEAN CELL VOLUME 73.4 fl (80-96); MEAN PLT VOLUME 9.3 fl (7.5-11.1); MONO % 6.4 % (3.8-10.2); NEUT % 59.7 % (42.8-82.8); PLATELET COUNT 298 10^3/uL (134-434); RBC 5.18 M/mm3 (4.00-5.60); RDW 16.3 % (11.9-15.9); WHITE BLOOD COUNT 6.6 K/mm3 (4.0-10.0)
[2022-11-04 09:01] LABS: POTASSIUM 4.1 mmol/L (3.5-5.1)
[2022-11-04 09:06] LABS: ALBUMIN 3.3 g/dl (3.4-5.0); BLOOD UREA NITROGEN 9.8 mg/dL (7-18)
[2022-11-04 09:07] LABS: CALCIUM 8.3 mg/dL (8.5-10.1); MAGNESIUM 2.1 mg/dL (1.8-2.4)
[2022-11-04 09:09] LABS: CREATININE 0.7 mg/dL (0.55-1.3)
[2022-11-04 09:10] LABS: TOT PROT 6.9 g/dl (6.4-8.2)
[2022-11-04 09:11] LABS: BILIRUBIN,TOTAL 0.8 mg/dL (0.2-1)
[2022-11-04] MEDS: SACUBITRIL/VALSARTAN 24 MG-26 MG TABLET PO SCH ×2 (09:15→22:07)
[2022-11-04] MEDS: FUROSEMIDE 40 MG TABLET (FP) PO SCH (09:15)
[2022-11-04] MEDS: SPIRONOLACTONE 25 MG TABLET PO SCH (09:15)
[2022-11-04] MEDS: CARVEDILOL 12.5 MG TABLET (FP) PO SCH ×2 (09:15→22:07)
[2022-11-04] MEDS: ENOXAPARIN NA (PORCINE) 40 MG/0.4 ML DISP.SYRIN SQ SCH ×2 (09:16→22:07)
[2022-11-04 13:07] LABS: HIV INTERPRETATION NEGATIVE (NEGATIVE)
[2022-11-04] MEDS: ATORVASTATIN CA 20 MG TABLET (FP) PO SCH (22:07)
[2022-11-05 08:12] LABS: HEMOGLOBIN 12.4 GM/dL (11.7-16.9); MCHC 31.8 g/dl (32.0-35.9); MEAN CELL VOLUME 72.1 fl (80-96); MEAN PLT VOLUME 9.3 fl (7.5-11.1); PLATELET COUNT 313 10^3/uL (134-434); RDW 16.5 % (11.9-15.9); WHITE BLOOD COUNT 6.2 K/mm3 (4.0-10.0)
[2022-11-05 08:34] LABS: POTASSIUM 3.9 mmol/L (3.5-5.1)
[2022-11-05 08:45] LABS: ALBUMIN 3.5 g/dl (3.4-5.0)
[2022-11-05 08:46] LABS: BLOOD UREA NITROGEN 12.2 mg/dL (7-18); CALCIUM 8.4 mg/dL (8.5-10.1); MAGNESIUM 2.1 mg/dL (1.8-2.4)
[2022-11-05 08:49] LABS: CREATININE 0.7 mg/dL (0.55-1.3); PHOSPHOROUS 4.2 mg/dL (2.5-4.9)
[2022-11-05 08:50] LABS: TOT PROT 7.2 g/dl (6.4-8.2)
[2022-11-05] MEDS: FUROSEMIDE 40 MG TABLET (FP) PO SCH (09:09)
[2022-11-05] MEDS: SACUBITRIL/VALSARTAN 24 MG-26 MG TABLET PO SCH (09:10)
[2022-11-05] MEDS: CARVEDILOL 12.5 MG TABLET (FP) PO SCH (09:10)
[2022-11-05] MEDS: SPIRONOLACTONE 25 MG TABLET PO SCH (09:10)
[2022-11-05] MEDS: ENOXAPARIN NA (PORCINE) 40 MG/0.4 ML DISP.SYRIN SQ SCH (09:10)
[2022-11-05 18:35] VITALS: BP 127/77; PULSE 83; RESP 20; TEMP 98.8
== END 2022-11-05 18:44 | disposition home or self-care (01) | DRG 194 ==
LOC: JER 12:09 → JERBED 14:10 → UNDOADMOB 14:10 → JERBED 17:57 → J4W 17:57 → INTOOBSV 19:40 → OBSVTOIN 19:40 → J4W 11-02 19:40 → JERBED 11-02 19:40
PROVIDERS: ADMIT Internal Medicine; ATTEND Internal Medicine
DX: I11.0 Hypertensive heart disease with heart failure (principal); I50.21 Acute systolic (congestive) heart failure; I27.20 Pulmonary hypertension, unspecified; I71.21 Aneurysm of the ascending aorta, without rupture; E78.5 Hyperlipidemia, unspecified; D50.9 Iron deficiency anemia, unspecified; I42.0 Dilated cardiomyopathy; I31.39 Other pericardial effusion (noninflammatory); I47.1 Supraventricular tachycardia; G47.33 Obstructive sleep apnea (adult) (pediatric); E66.01 Morbid (severe) obesity due to excess calories; Z68.41 Body mass index [BMI] 40.0-44.9, adult
CPT/HCPCS: 36415; 71045-TC-FY; 71250-TC; 80053; 80061; 82525; 82728; 82803; 83036; 83540; 83550; 83735; 83880; 84100; 84443; 84484; 85025; 85027; 86705; 87340; 87389; 87517; 93005; 93010; 93306-TC; 99285-25; G0378